=== PATIENT | male | born 1995 | race Hispanic/Latino ===

== ENCOUNTER 2019-04-29 12:22 | Emergency (ER) | payer SELFPAY ==
--- NOTE | 2019-04-29 14:10 | REP ---
Clinical: Pain. Technique: AP and frog lateral views of the right femur. Findings: Osseous structures, joint spaces, and surrounding soft tissues are normal. No acute fracture dislocation. Impression: No acute fracture dislocation. Electronically Signed by Cristofer Saravia MD 04/29/2019 02:02 P
[2019-04-29] MEDS ORDERED: IBUP-1022 PO (14:50)
[2019-04-29 14:57] VITALS: BP 139/72
== END 2019-04-29 14:58 | disposition home or self-care (01) ==
LOC: M ED 12:22
DX: S76.111A Strain of right quadriceps muscle, fascia and tendon, initial encounter (principal); X58.XXXA Exposure to other specified factors, initial encounter; Y92.89 Other specified places as the place of occurrence of the external cause